=== PATIENT | male | born 1980 | race Caucasian/White ===

== ENCOUNTER 2018-09-22 00:18 | Emergency (ER) | payer OTHER ==
[2018-09-22 00:41] VITALS: BP 145/91; PULSE 85; TEMP 97.6; BMI 30.7
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
--- NOTE | 2018-09-22 08:40 | EKG ---
Test Reason : Blood Pressure : / mmHG Vent. Rate : 076 BPM Atrial Rate : 076 BPM P-R Int : 144 ms QRS Dur : 098 ms QT Int : 354 ms P-R-T Axes : 046 027 018 degrees QTc Int : 398 ms NORMAL SINUS RHYTHM NORMAL ECG NO PREVIOUS ECGS AVAILABLE Confirmed by MICHI RODRIGUEZ, AP ([id number] on 09/22/2018 8:39:37 AM Referred By: Confirmed By:AP BORDEN MD
== END 2018-09-22 01:55 | disposition home or self-care (01) ==
LOC: JER 00:18
DX: R07.89 Other chest pain (principal); V43.52XA Car driver injured in collision with other type car in traffic accident, initial encounter; Y92.412 Parkway as the place of occurrence of the external cause; Y93.89 Activity, other specified; Y99.8 Other external cause status
CPT/HCPCS: 93005; 93010; 99282-25